=== PATIENT | female | born 1970 | race Caucasian/White ===

== ENCOUNTER 2017-06-05 16:07 | Emergency (ER) | payer OTHER ==
[2017-06-05] MEDS ORDERED: Sodium Chloride 0.9% 10 ML Syringe FLUSH PRN (16:17)
[2017-06-05] MEDS ORDERED: Ondansetron 4 MG/2 ML SDV IVPUSH ONE (16:18)
[2017-06-05] MEDS ORDERED: HYDROmorphone 1 MG/ML Syringe IVPUSH ONE ×2 (16:18→18:16)
[2017-06-05] MEDS ORDERED: Sodium Chloride 0.9% 1,000 ML IV ONE ×2 (16:18→18:16)
[2017-06-05] MEDS ORDERED: Ketorolac 30 MG/ML SDV IVPUSH ONE (16:18)
[2017-06-05 16:56] LABS: CHLORIDE,CL 103 mmol/L (98-107); SODIUM,NA 142 mmol/L (136-145)
[2017-06-05 16:57] VITALS: BP 152/82
[2017-06-05] MEDS ORDERED: Tamsulosin 0.4 MG Cap.ER PO ONE (18:17)
[2017-06-05] MEDS ORDERED: Take Home: Acetaminophen/HYDROcodone 325-10 MG, 5 Tab Pack PO ONE (19:51)
[2017-06-05] MEDS ORDERED: Take Home: Ketorolac 10 MG Tab, 4 Tab Pack PO ONE (19:51)
[2017-06-05] MEDS ORDERED: Take Home: Ondansetron 4 MG Tab.DIS, 2 Tab Pack PO ONE (20:10)
--- NOTE | 2017-06-07 07:39 | ER ---
Date of Service: 06/05/2017 SUBJECTIVE: Rebekah presents to the emergency room with complaints of right- sided flank pain. The patient states that she developed this pain while driving back from [place] today, and states the discomfort was a very rapid in onset. She describes the discomfort as sharp in nature, and states that the discomfort is constant, but occasionally her symptoms become more severe. She states that she is not experiencing any chest pain or shortness of breath and denies any history of these types of symptoms in the past. She states that she is not experiencing any blood in her urine. PAST MEDICAL HISTORY: Hypertension. MEDICATIONS: 1. Spironolactone 100 mg daily. 2. Benicar 40 mg. ALLERGIES: NKDA. REVIEW OF SYSTEMS: Denies any fever, chills, chest pain, or shortness of breath. Please see history of present illness. PHYSICAL EXAMINATION: General: This is a 46-year-old female patient, who is in no acute distress. Vital Signs: Please see nurse's notes. Skin: Warm, pink, and dry. HEENT: Mouth, oral mucosa is dry. No erythema or exudate noted in the hypopharynx. Neck: Supple without masses. There is no lymphadenopathy. Lungs: Clear to auscultation. Heart: Regular rate and rhythm. Abdomen: Soft and nontender. There is no hepatosplenomegaly or masses noted. Extremities: Without edema. Neurologic: The patient is alert and oriented and answers all questions appropriately. Her speech is fluent. Her gait is within normal limits. LABORATORY DATA: WBCs 11.3, hemoglobin is 13.2, and platelets are 285. Coag; PT is 9.7, INR is 0.9. Chemistry; sodium is 142, potassium is 3.7, chloride is 103, bicarb is 28, BUN is 16, creatinine is 1.0, GFR is 10, glucose is 108, calcium is 9.5, corrected calcium is 9.34. Total bilirubin is 0.5, AST is 9, ALT is 21, alkaline phosphatase is 72, and C-reactive protein is 0.7. Total protein is 8.4, albumin is 4.2. Urinalysis was obtained. She did have a dark yellow specimen, which was turbid. The pH is 5.5, specific gravity is 1.030. UA showed 100 mg/dL protein, negative for glucose and ketones. She did have large occult blood, negative nitrites, and small bilirubin. She had negative leukocyte esterase and moderate bacteria. CT scan of the patient's abdomen and pelvis was obtained. She did have evidence of 4 mm obstructing right ureteral stone with moderate hydronephrosis. The stone was located in the proximal ureter. EMERGENCY ROOM COURSE: IV access was established. She was given 2 L of normal saline and was given Zofran for nausea. She was given Toradol 30 mg IV and Dilaudid 1 mg in two separate doses for pain control. She was also given Flomax 0.4 mg p.o. and remained stable in my care in the emergency room. ASSESSMENT: A 4 mm right ureteral stone with moderate hydronephrosis. PLAN: I spoke with Dr. Geiger, the urologist on-call at [facility] in [place]. He stated that the patient could be handled on an outpatient basis if her pain is amenable to oral pain medication. The patient was subsequently started on [place] 10/325 with instructions to take one to two every 4 to 6 hours as needed for pain. She was also given prescription for Toradol 10 mg every 6 hours as needed for pain and inflammation. She was also given Zofran ODT 4 mg every 8 hours for nausea and vomiting and was also started on Flomax 0.4 mg once daily to help with ureteral dilation. We discussed the findings at length with the patient. Advised her to return to the emergency room if the discomfort is unrelenting, we will ER either admit her for pain control or transfer her to [facility] for Urology consult. All the questions were answered. She was also given a urine strainer and was advised to collect any stones for analysis. All the questions were answered. MWK: 06/06/2017 07:02:26 MODL: 06/06/2017 10:38:24 /[id number]
== END 2017-06-05 20:15 | disposition home or self-care (01) ==
LOC: VM.ED 16:07
DX: N13.2 Hydronephrosis with renal and ureteral calculous obstruction (principal)
CPT/HCPCS: 74176; 80053; 81001; 85025; 85610; 86140; 96361; 96374; 96375; 96376; 99284; A9270; J1170; J1885; J2405; J7030

== ENCOUNTER 2017-12-16 14:04 | Emergency (ER) | payer OTHER ==
--- NOTE | 2017-12-16 14:42 | EDM.PDOC ---
ED HPI GENERAL MEDICAL PROBLEM - General Chief Complaint: General Stated Complaint: HAD SURGERY 12/21/17 RUNNING FEVER Time Seen by Provider: 12/16/17 14:12 Source of Information: Reports: Patient, RN, RN Notes Reviewed History Limitations: Reports: No Limitations - History of Present Illness INITIAL COMMENTS - FREE TEXT/NARRATIVE: Patient presents emergency room at [facility] with concerns of possible surgical site infection. The patient underwent a robotic hysterectomy last Sunday. The patient states that she noticed a fever this morning at home. The patient states she brought herself in because she was advised to get it checked out per her discharge instructions. The patient denies any incisional drainage. The patient denies any pain to the incision sites. Patient denies any chills no abdominal pain. No UTI symptoms. Patient denies any chest pain. No shortness of breath. Onset: Today Onset Date: 12/16/17 Onset Time: 06:00 Right Abdomen Pain Score (Numeric/FACES): 1 - Related Data Allergies Allergy/AdvReac Type Severity Reaction Status Date / Time No Known Allergies Allergy Verified 06/05/17 16:17 Home Meds: Home Meds Olmesartan [Benicar] 40 mg DAILY 06/05/17 [History] Spironolactone [Spironolactone] 100 mg DAILY 06/05/17 [History] Cephalexin 1 cap PO TID #26 capsule 12/16/17 [Rx] Past Medical History Cardiovascular History: Reports: High Cholesterol, Hypertension ACTIVITY AID History: Reports: Polycystic Ovaries Musculoskeletal History: Reports: Fracture, Other (See Below) Other Musculoskeletal History: fx wrists Social & Family History - Tobacco Use Smoking Status *Q: Never Smoker - Recreational Drug Use Recreational Drug Use: No ED ROS GENERAL - Review of Systems Review Of Systems: See Below Constitutional: Reports: Fever, Chills. Denies: Weakness, Decreased Appetite HEENT: Reports: No Symptoms Respiratory: Denies: Shortness of Breath, Cough Cardiovascular: Denies: Chest Pain, Palpitations GI/Abdominal: Denies: Abdominal Pain, Nausea, Vomiting Skin: Reports: No Symptoms Neurological: Reports: No Symptoms ED EXAM, GENERAL - Physical Exam Exam: See Below Exam Limited By: No Limitations General Appearance: Alert, No Apparent Distress Respiratory/Chest: No Respiratory Distress, Lungs Clear, Normal Breath Sounds Cardiovascular: Normal Peripheral Pulses, Regular Rate, Rhythm GI/Abdominal: Normal Bowel Sounds, Soft, Non-Tender Neurological: Alert Skin Exam: Warm, Dry, Intact, Normal Color, No Rash, Wound/Incision (6 lap sites are all healing well, no evidence of infection; all non-tender to palpitation.) Course - Vital Signs Last Recorded V/S: Last Vital Signs Temp 36.6 C 12/16/17 14:20 Pulse 88 12/16/17 14:20 Resp 20 12/16/17 14:20 BP 146/73 H 12/16/17 14:20 Pulse Ox - Orders/Labs/Meds Orders: Active Orders 24 hr Category Date Time Status CULTURE BLOOD [BC] Stat Lab 12/16/17 15:00 Received CULTURE BLOOD [BC] Stat Lab 12/16/17 15:15 Results Blood Culture x2 Reflex Set [OM.PC] Stat Oth 12/16/17 14:40 Ordered Labs: Laboratory Tests 12/16/17 12/16/17 12/16/17 Range/Units 15:00 15:00 15:00 WBC 15.3 H (4.0-10.0) x10^3/uL RBC 3.88 L (4.00-5.50) x10^6/uL Hgb 11.9 L (12.0-16.0) g/dL Hct 35.2 (33.0-47.0) % MCV 90.7 D (78.0-93.0) fL MCH 30.7 (26.0-32.0) pg MCHC 33.8 (32.0-36.0) g/dL RDW Coeff of Ariel 14.0 (10.0-15.0) % Plt Count 281 (130-400) x10^3/uL Neut % (Auto) 87.2 H (50.0-80.0) % Lymph % (Auto) 8.1 L (25.0-50.0) % Isabela % (Auto) 4.2 (2.0-11.0) % Eos % (Auto) 0.3 (0.0-4.0) % Baso % (Auto) 0.2 (0.2-1.2) % Sodium 140 (136-145) mmol/L Potassium 3.8 (3.5-5.1) mmol/L Chloride 102 (98-107) mmol/L Carbon Dioxide 28 (21-32) mmol/L BUN 11 (7-18) mg/dL Creatinine 0.8 (0.55-1.02) mg/dL Est Cr Clr Drug Dosing 81.38 mL/min Estimated GFR (MDRD) > 60 Glucose 95 (74-106) mg/dL Lactic Acid 1.2 (0.4-2.0) mmol/L Calcium 9.3 (8.5-10.1) mg/dL C-Reactive Protein 9.0 H (<=0.9) mg/dL Departure - Departure Time of Disposition: 16:03 Disposition: Home, Self-Care 01 Condition: Good Clinical Impression: Post-operative infection Qualifiers: Encounter type: initial encounter Qualified Code(s): T81.4XXA - Infection following a procedure, initial encounter Fever Qualifiers: Fever type: unspecified Qualified Code(s): R50.9 - Fever, unspecified - Discharge Information Prescriptions: Cephalexin 1 cap PO TID #26 capsule Instructions: Fever, Adult, [id number] Referrals: Maura Roman STOCK RECEIVER [Primary Care Provider] - Forms: ED Department Discharge Additional Instructions: 1. Stay well hydrated and rest 2. Take antibiotics for the full coarse, even if you are feeling better 3. Drink LOTS of water 4. Recommend seeing your Primary this week for a follow up to make sure everything is going well 5. Call with any questions/concerns - Problem List Review Problem List Initiated/Reviewed/Updated: Yes - My Orders Last 24 Hours: My Active Orders 12/16/17 14:40 Blood Culture x2 Reflex Set [OM.PC] Stat 12/16/17 15:00 CULTURE BLOOD [BC] Stat 12/16/17 15:15 CULTURE BLOOD [BC] Stat - Assessment/Plan Last 24 Hours: My Active Orders 12/16/17 14:40 Blood Culture x2 Reflex Set [OM.PC] Stat 12/16/17 15:00 CULTURE BLOOD [BC] Stat 12/16/17 15:15 CULTURE BLOOD [BC] Stat
[2017-12-16 15:31] VITALS: BP 146/73
[2017-12-16 15:42] LABS: CHLORIDE,CL 102 mmol/L (98-107); SODIUM,NA 140 mmol/L (136-145)
[2017-12-16] MEDS ORDERED: Take Home: Cephalexin 500 MG Cap, 4 Cap Pack PO ONE (16:07)
== END 2017-12-16 16:20 | disposition home or self-care (01) ==
LOC: VM.ED 14:04
DX: T81.4XXA Infection following a procedure, initial encounter (principal); E78.00 Pure hypercholesterolemia, unspecified; I10 Essential (primary) hypertension; Z79.899 Other long term (current) drug therapy; Z90.710 Acquired absence of both cervix and uterus
CPT/HCPCS: 36415; 80048; 83605; 85025; 86140; 87040; 99283; A9270

== ENCOUNTER 2018-07-18 21:10 | Emergency (ER) | payer OTHER ==
[2018-07-18 21:41] VITALS: BP 137/82
--- NOTE | 2018-07-19 06:34 | EDM.PDOC ---
ED HPI GENERAL MEDICAL PROBLEM - General Chief Complaint: Head Injury Stated Complaint: head and neck pain Time Seen by Provider: 07/18/18 21:20 Source of Information: Reports: Patient, Family History Limitations: Reports: No Limitations - History of Present Illness INITIAL COMMENTS - FREE TEXT/NARRATIVE: Pt. states she was seated on a cooler and fell backward, striking her head and landing on her back. She complains of severe headache, lightheadedness, and neck pain. She also complains of lower back pain and leg pain as well. Denies any LOC. No chest pain or shortness of breath. No weakness. She states that she does have chronic musculoskeletal pain but states that it was exacerbated with the fall. Onset Date: 07/18/18 Location: Reports: Head, Neck, Back, Lower Extremity, Right Headache Pain Score (Numeric/FACES): 6 - Related Data Allergies Allergy/AdvReac Type Severity Reaction Status Date / Time No Known Allergies Allergy Verified 07/18/18 21:17 Home Meds: Home Meds Olmesartan [Benicar] 40 mg PO DAILY 06/05/17 [History] Spironolactone 100 mg PO DAILY 06/05/17 [History] FLUoxetine HCl [Fluoxetine HCl] 1 tab PO DAILY 07/18/18 [History] Simvastatin [Zocor] 40 mg PO DAILY 07/18/18 [History] Past Medical History Cardiovascular History: Reports: High Cholesterol, Hypertension Gastrointestinal History: Reports: GERD MANAGER OF CONSTRUCTION History: Reports: Polycystic Ovaries Musculoskeletal History: Reports: Fracture, Other (See Below) Other Musculoskeletal History: fx wrists Oncologic (Cancer) History: Reports: Other (See Below) Other Oncologic History: endometrial - Past Surgical History Female Surgical History: Reports: Hysterectomy, Lithotripsy/ESWL Social & Family History - Tobacco Use Smoking Status *Q: Never Smoker ED ROS GENERAL - Review of Systems Review Of Systems: See Below Constitutional: Reports: No Symptoms HEENT: Reports: No Symptoms Respiratory: Reports: No Symptoms Cardiovascular: Reports: No Symptoms Endocrine: Reports: No Symptoms GI/Abdominal: Reports: No Symptoms : Reports: No Symptoms Musculoskeletal: Reports: Neck Pain, Back Pain, Muscle Pain, Muscle Stiffness Skin: Reports: No Symptoms Neurological: Reports: Dizziness, Headache Psychiatric: Reports: No Symptoms Hematologic/Lymphatic: Reports: No Symptoms Immunologic: Reports: No Symptoms ED EXAM, HEAD INJURY - Physical Exam Exam: See Below Exam Limited By: No Limitations General Appearance: Alert, WD/WN, No Apparent Distress Head: Atraumatic, Normocephalic Nexus Criteria: Posterior, Midline Cervical Tenderness Eyes: Bilateral Eye: EOMI, Normal Fundi, Normal Inspection, PERRL Ears: Normal External Exam, Normal Canal, Hearing Grossly Normal, Normal TMs Nose: Normal Inspection, Normal Mucousa, No Blood Throat/Mouth: Normal Inspection, Normal Lips, Normal Teeth, Normal Gums, Normal Oropharynx, Normal Voice, No Airway Compromise Neck: Normal Alignment, Normal Inspection, Limited Range of Motion, Painful Range of Motion, Spinous Processes Tender Respiratory: No Respiratory Distress, Lungs Clear, Normal Breath Sounds, No Accessory Muscle Use, Chest Non-Tender Cardiovascular: Normal Peripheral Pulses, Regular Rate, Rhythm, No Edema, No Gallop, No JVD, No Murmur, No Rub GI/Abdominal Exam: Normal Bowel Sounds, Soft, Non-Tender, No Organomegaly, No Distention, No Abnormal Bruit, No Mass (Female) Exam: Deferred Rectal (Female) Exam: Deferred Back Exam: Normal Inspection, Full Range of Motion Extremities: Normal Inspection, Normal Range of Motion, Non-Tender, No Pedal Edema, Normal Capillary Refill Neurologic: agriculture mechanic II-XII nml As Tested, No Motor/Sensory Deficits, Alert, Normal Mood/Affect, Oriented x 3 Skin: Normal Color, Warm/Dry - [place] Coma Score Best Eye Response (Justo): (4) Open Spontaneously Best Verbal Response ([place]): (5) Oriented Best Motor Response (Justo): (6) Obeys Commands Justo Total: 15 Course - Vital Signs Last Recorded V/S: Last Vital Signs Temp 36.8 C 07/18/18 21:20 Pulse 77 07/18/18 21:20 Resp 18 07/18/18 21:20 BP 137/82 07/18/18 21:20 Pulse Ox 100 07/18/18 21:20 - Orders/Labs/Meds Orders: Active Orders 24 hr Category Date Time Status Cervical Spine wo Cont [CT] Stat Exams 07/18/18 21:20 Ordered Head wo Cont [CT] Stat Exams 07/18/18 21:20 Ordered - Radiology Interpretation Free Text/Narrative:: CT brain and c-spine were obtained and were negative Departure - Departure Time of Disposition: 22:44 Disposition: Home, Self-Care 01 Condition: Good Clinical Impression: Concussion with less than 1 hour loss of consciousness, Strain of neck muscle - Discharge Information Instructions: Head Injury, Adult, Cervical Sprain Referrals: Bernadette Jones NP [Primary Care Provider] - Forms: ED Department Discharge Additional Instructions: Home to rest. Tylenol and ibuprofen for discomfort. Ice painful areas for 10-15 min every 1-2 hours. Follow-up in clinic in 7-10 days for recheck. - My Orders Last 24 Hours: My Active Orders 07/18/18 21:20 Cervical Spine wo Cont [CT] Stat Head wo Cont [CT] Stat - Assessment/Plan Last 24 Hours: My Active Orders 07/18/18 21:20 Cervical Spine wo Cont [CT] Stat Head wo Cont [CT] Stat Plan: Home to rest. Tylenol and ibuprofen for discomfort. Ice painful areas for 10-15 min every 1-2 hours. Follow-up in clinic in 7-10 days for recheck.
== END 2018-07-18 22:44 | disposition home or self-care (01) ==
LOC: VM.ED 21:10
DX: S06.0X9A Concussion with loss of consciousness of unspecified duration, initial encounter (principal); S16.1XXA Strain of muscle, fascia and tendon at neck level, initial encounter; I10 Essential (primary) hypertension; W17.89XA Other fall from one level to another, initial encounter
CPT/HCPCS: 70450; 72125; 99284

== ENCOUNTER 2019-03-31 07:57 | Day surgery (SDC) | payer OTHER ==
[~2019-03-31 07:57] MED LIST: Lactated Ringers 1,000 ML IV SCH; Sodium Chloride 0.9% 10 ML Syringe FLUSH PRN
[2019-03-31] MEDS ORDERED: fentaNYL 100 MCG/2 ML SDV ONE (09:45)
[2019-03-31] MEDS ORDERED: Propofol 200 MG/20 ML SDV ONE ×2 (09:45→10:05)
[2019-03-31 10:57] VITALS: BP 98/54
--- NOTE | 2019-04-01 07:57 | OR ---
PREOPERATIVE DIAGNOSIS: Abdominal pain. POSTOPERATIVE DIAGNOSIS: Abdominal pain. PROCEDURE PERFORMED: Colonoscopy. INDICATIONS: Ms. Fiore is a 48-year-old female with history of abdominal pain, presents for colonoscopy for further evaluation. PROCEDURE IN DETAIL: This was done in the procedure room. Sedation was given per Anesthesia. She was placed in left lateral position. First, a rectal exam was done, and was normal. Scope was then introduced into the rectum and slowly advanced to the rectum, sigmoid, descending, transverse, and ascending colon until the cecum was reached. Upon reaching the cecum, scope was withdrawn looking at all mucosal surfaces on the way out. No mucosal abnormalities, lesions, or polyps were noted. FINAL DIAGNOSIS: Normal colonoscopy. BKD: 03/31/2019 10:28:28 MODL: 03/31/2019 16:33:38 /[id number]
== END 2019-03-31 11:40 | disposition home or self-care (01) ==
LOC: VM.SDS 07:57
PROVIDERS: ATTEND Surgery
DX: R10.9 Unspecified abdominal pain (principal); I10 Essential (primary) hypertension; E78.00 Pure hypercholesterolemia, unspecified; E28.2 Polycystic ovarian syndrome; E88.81 Metabolic syndrome and other insulin resistance; L68.0 Hirsutism; M54.5 Low back pain; N20.1 Calculus of ureter; Z79.1 Long term (current) use of non-steroidal anti-inflammatories (NSAID); Z79.899 Other long term (current) drug therapy
CPT/HCPCS: 45378; J2704; J3010; J7120

== ENCOUNTER 2021-12-28 08:20 | Emergency (ER) | payer OTHER ==
[2021-12-28] MEDS ORDERED: Acetaminophen 325 MG Tab PO ONE (10:17)
== END 2021-12-28 10:45 | disposition home or self-care (01) ==
LOC: VM.ED 08:20
DX: S00.83XA Contusion of other part of head, initial encounter (principal); E78.00 Pure hypercholesterolemia, unspecified; I10 Essential (primary) hypertension; K21.9 Gastro-esophageal reflux disease without esophagitis; Z79.899 Other long term (current) drug therapy; V49.40XA Driver injured in collision with unspecified motor vehicles in traffic accident, initial encounter; Y92.410 Unspecified street and highway as the place of occurrence of the external cause
CPT/HCPCS: 70450; 71045; 72125; 72170; 99284; A9270